=== PATIENT | male | born 1980 | race Two or more races ===

== ENCOUNTER 2020-11-10 03:33 | Emergency (ER) | payer OTHER ==
[2020-11-10] MEDS ORDERED: morphine SULFATE IMMEDIATE RELEASE 30 MG TAB PO ONE (03:35)
[2020-11-10 03:56] VITALS: BMI 28.1
[2020-11-10] MEDS ORDERED: KETOROLAC TROMETHAMINE 60 MG/2 ML VIAL IM ONE (04:29)
[2020-11-10] MEDS ORDERED: KETOROLAC TROMETHAMINE 30 MG/1 ML VIAL ONE (05:21)
[2020-11-10 05:47] LABS: PH,URINE 5.5 (5.0-8.0); URINE APPEARANCE CLEAR; URINE BILIRUBIN NEGATIVE (NEGATIVE); URINE COLOR YELLOW; URINE GLUCOSE (UA) NEGATIVE (NEGATIVE); URINE KETONE 4+ (NEGATIVE); URINE LEUK ESTERASE NEGATIVE (NEGATIVE); URINE NITRITE NEGATIVE (NEGATIVE); URINE PROTEIN TRACE (NEGATIVE); URINE UROBILINOGEN 0.2 mg/dL (0.2-1.0)
[2020-11-10] MEDS ORDERED: ONDANSETRON 4 MG/2 ML VIAL IVPUSH ONE (06:30)
[2020-11-10] MEDS ORDERED: SODIUM CHLORIDE 1,000 ML IV STA (06:30)
[2020-11-10] MEDS ORDERED: morphine CARPU-JECT 4 MG/1 ML DISP.SYRIN IVPUSH ONE (06:31)
[2020-11-10] MEDS ORDERED: morphine CARPU-JECT 2 MG/1 ML DISP.SYRIN IVPUSH ONE (06:32)
[2020-11-10] MEDS ORDERED: ONDANSETRON 4 MG/2 ML VIAL ONE (06:44)
[2020-11-10 07:09] VITALS: TEMP 98.3
[2020-11-10 07:21] LABS: BASO % 0.1 % (0-2.0); HEMATOCRIT 41.1 % (35.4-49); HEMOGLOBIN 13.5 GM/dL (11.7-16.9); LYMPH % 9.5 % (8-40); MCH 28.8 pg (25.7-33.7); MCHC 32.9 g/dl (32.0-35.9); MEAN CELL VOLUME 87.6 fl (80-96); MEAN PLT VOLUME 8.6 fl (7.5-11.1); MONO % 5.8 % (3.8-10.2); NEUT % 84.6 % (42.8-82.8); PLATELET COUNT 249 10^3/uL (134-434); RDW 13.3 % (11.9-15.9); WHITE BLOOD COUNT 12.1 K/mm3 (4.0-10.0)
[2020-11-10 07:36] LABS: CALCIUM 8.7 mg/dL (8.5-10.1)
[2020-11-10 07:38] LABS: BLOOD UREA NITROGEN 10.6 mg/dL (7-18)
[2020-11-10 07:41] LABS: CREATININE 1.2 mg/dL (0.55-1.3)
[2020-11-10] MEDS ORDERED: morphine SULFATE 4 MG/ML VIAL IVPUSH ONE ×2 (08:05→08:45)
[2020-11-10] MEDS ORDERED: morphine SULFATE 4 MG/ML VIAL ONE (08:28)
[2020-11-10 08:36] VITALS: BP 144/87; PULSE 60
[2020-11-10] MEDS ORDERED: MORPHINE SULFATE 2 MG/ML VIAL ONE (09:07)
== END 2020-11-10 12:30 | disposition home or self-care (01) ==
LOC: JER 03:33 → JASUSAT 09:54 → JER 12:30
PROC: 3E0233Z Introduction of Anti-inflammatory into Muscle, Percutaneous Approach (ICD-10-PCS; principal; 2020-11-10)
PROC: 3E033GC Introduction of Other Therapeutic Substance into Peripheral Vein, Percutaneous Approach (ICD-10-PCS; 2020-11-10)
PROC: 3E0337Z Introduction of Electrolytic and Water Balance Substance into Peripheral Vein, Percutaneous Approach (ICD-10-PCS; 2020-11-10)
PROC: 3E033GC Introduction of Other Therapeutic Substance into Peripheral Vein, Percutaneous Approach (ICD-10-PCS; 2020-11-10)
PROC: 3E033GC Introduction of Other Therapeutic Substance into Peripheral Vein, Percutaneous Approach (ICD-10-PCS; 2020-11-10)
PROC: 3E033GC Introduction of Other Therapeutic Substance into Peripheral Vein, Percutaneous Approach (ICD-10-PCS; 2020-11-10)
DX: R10.9 Unspecified abdominal pain (principal)
CPT/HCPCS: 36415; 80048; 81003; 85025; 87086; 93005; 93010; 99284-25; C9803; U0003; U0005

== ENCOUNTER 2020-12-16 20:09 | Emergency (ER) | payer OTHER ==
[2020-12-16 20:34] VITALS: BP 118/68; PULSE 62; TEMP 98.6; BMI 26.6
[2020-12-16] MEDS ORDERED: KETOROLAC TROMETHAMINE 15 MG/ML VIAL IVPUSH ONE (20:43)
[2020-12-16] MEDS ORDERED: SODIUM CHLORIDE 0.9% 500 ML INFUS.BAG IV ONE (20:43)
[2020-12-16] MEDS ORDERED: ALBUTEROL SO4 HFA INHALER IH ONE ×2 (20:54→20:56)
[2020-12-16] MEDS ORDERED: KETOROLAC TROMETHAMINE 15 MG/ML VIAL ONE (20:55)
[2020-12-16 21:58] LABS: BASO % 1.3 % (0-2.0); EOS % 0.9 % (0-4.5); HEMATOCRIT 36.9 % (35.4-49); HEMOGLOBIN 12.8 GM/dL (11.7-16.9); LYMPH % 26.2 % (8-40); MCH 30.5 pg (25.7-33.7); MCHC 34.8 g/dl (32.0-35.9); MEAN CELL VOLUME 87.7 fl (80-96); MEAN PLT VOLUME 7.8 fl (7.5-11.1); MONO % 10.5 % (3.8-10.2); NEUT % 61.1 % (42.8-82.8); PLATELET COUNT 248 10^3/uL (134-434); RDW 14.1 % (11.9-15.9); WHITE BLOOD COUNT 7.6 K/mm3 (4.0-10.0)
[2020-12-16 22:18] LABS: ALBUMIN 3.8 g/dl (3.4-5.0); BLOOD UREA NITROGEN 15.2 mg/dL (7-18); CALCIUM 8.9 mg/dL (8.5-10.1)
[2020-12-16 22:21] LABS: CREATININE 1.1 mg/dL (0.55-1.3)
[2020-12-16 22:23] LABS: BILIRUBIN,TOTAL 1.1 mg/dL (0.2-1); TOT PROT 7.6 g/dl (6.4-8.2)
[2020-12-16 23:39] LABS: URINE APPEARANCE CLEAR; URINE BILIRUBIN 1+ (NEGATIVE); URINE COLOR DK YELLOW; URINE GLUCOSE (UA) NEGATIVE (NEGATIVE); URINE KETONE 1+ (NEGATIVE); URINE LEUK ESTERASE NEGATIVE (NEGATIVE); URINE NITRITE NEGATIVE (NEGATIVE); URINE PROTEIN NEGATIVE (NEGATIVE); URINE UROBILINOGEN 0.2 mg/dL (0.2-1.0)
[2020-12-16 23:44] LABS: CALCIUM 8.1 mg/dL (8.5-10.1)
[2020-12-16 23:45] LABS: BLOOD UREA NITROGEN 14.1 mg/dL (7-18)
[2020-12-16 23:48] LABS: CREATININE 1.1 mg/dL (0.55-1.3)
[2020-12-17] MEDS ORDERED: SODIUM CHLORIDE 0.9% 500 ML INFUS.BAG IV ONE (00:22)
[2020-12-17] MEDS ORDERED: levETIRAcetam 500 MG TABLET (FP) PO ONE ×2 (00:36→01:26)
[2020-12-17] MEDS ORDERED: POTASSIUM CHLORIDE TABS 20 MEQ TABLET.ER (FP) PO ONE ×2 (01:01→01:17)
== END 2020-12-17 01:53 | disposition home or self-care (01) ==
LOC: JER 20:09
PROC: 3E0333Z Introduction of Anti-inflammatory into Peripheral Vein, Percutaneous Approach (ICD-10-PCS; principal; 2020-12-16)
PROC: 3E0F7GC Introduction of Other Therapeutic Substance into Respiratory Tract, Via Natural or Artificial Opening (ICD-10-PCS; 2020-12-16)
DX: R52 Pain, unspecified (principal)
CPT/HCPCS: 36415; 74176-TC; 80048; 80053; 81003; 85025; 87086; 93005; 93010; 99285-25